=== PATIENT | male | born 1985 | race Caucasian/White ===

== ENCOUNTER 2017-08-09 03:08 | Emergency (ER) | payer MEDICAID ==
[~2017-08-09] VITALS: Ht 188 cm; Wt 113.4 kg
--- NOTE | 2017-08-09 03:11 | NUR ---
Patient to ER bed 8 to gown for evaluation. Side rails up.
[2017-08-09 03:15] VITALS: BP_SYST 121
--- NOTE | 2017-08-09 03:20 | NUR ---
Patient to ER C/O mid back pain 06/24 s/p working on his car Wednesday and "laying on back for many hours" Denies injury, pain is unrelieved by tylenol & excedrine. Denies tingling or radiating down the legs. AAOx4, unlabored breathig, no signs of acute distress.
--- NOTE | 2017-08-09 03:24 | NUR ---
ER MD Britany Heck at bedside evaluating the patient
[2017-08-09] MEDS ORDERED: KETOROLAC TROMETHAMINE 30 MG VIAL IM ONE (03:30)
--- NOTE | 2017-08-09 03:49 | NUR ---
Patient reports pain 4/10 15 minutes after administration of toradol. No adverse reactions noted. Will continue to monitor.
[2017-08-09 04:02] VITALS: BP_SYST 119
--- NOTE | 2017-08-09 04:02 | NUR ---
Patient given written and verbal discharge instructions and verbalizes understanding. ER MD Britany Parra discussed with patient the results and treatment provided. Patient in stable condition. ID arm band removed. Rx of flexeril &naproxen given. Patient educated on pain management and to follow up with PMD. Pain Scale 0/10. Opportunity for questions provided and answered.
== END 2017-08-09 04:02 | disposition home or self-care (01) ==
LOC: SED 03:08
DX: G89.29 Other chronic pain (principal); M54.6 Pain in thoracic spine
CPT/HCPCS: 96372; 99283; J1885

== ENCOUNTER 2017-08-11 20:40 | Emergency (ER) | payer MEDICAID ==
[~2017-08-11] VITALS: Ht 188 cm; Wt 113.4 kg
[2017-08-11 20:40] VITALS: BP_SYST 141
[2017-08-11 21:12] LABS: BILIRUBIN,URINE NEGATIVE (NEGATIVE); BLOOD, URINE NEGATIVE (NEGATIVE); CLARITY/URINE CLEAR (CLEAR); COLOR,URINE YELLOW (YELLOW); GLUCOSE,URINE NEGATIVE (NEGATIVE); KETONES,URINE NEGATIVE (NEGATIVE); LEUKOCYTE ESTERASE ,URINE NEGATIVE (NEGATIVE); NITRITE, URINE NEGATIVE (NEGATIVE); PROTEIN URINE NEGATIVE (NEGATIVE); UROBILINOGEN,URINE 0.2 (0.2-1.0)
[2017-08-11 21:43] LABS: BASOPHILS % (AUTO) 0.3 % (0.0-2.0); EOSINOPHILS # (AUTO) 0.2 K/uL (0.0-0.4); EOSINOPHILS % (AUTO) 2.5 % (0.0-4.0); HEMATOCRIT 44.9 % (36-54); HEMOGLOBIN 14.7 g/dL (14.0-18.0); LYMPHOCYTES # (AUTO) 1.1 K/uL (1.0-5.5); LYMPHOCYTES % (AUTO) 16.1 % (20.5-51.5); MEAN CORPUSCULAR HEMOGLOBIN 29 pg (27-31); MEAN CORPUSCULAR HGB CONC 33 % (32-36); MEAN CORPUSCULAR VOLUME 90 fL (79.0-98.0); MONOCYTES # (AUTO) 0.3 K/uL (0.0-1.0); MONOCYTES % (AUTO) 4.7 % (1.7-9.3); NEUTROPHILS # (AUTO) 5.3 K/uL (1.8-7.7); NEUTROPHILS % (AUTO) 76.4 % (40.0-70.0); PLATELET COUNT (AUTO) 191 K/uL (130-430); RED BLOOD CELL COUNT(AUTO) 5.02 MIL/uL (4.2-6.2); RED CELL DISTRIBUTION WIDTH 12.3 % (9.0-15.0); WHITE BLOOD COUNT (AUTO) 6.9 K/uL (4.8-10.8)
[2017-08-11 22:04] LABS: CALCIUM 9.1 mg/dL (8.4-11.0); CREATININE 0.93 mg/dL (0.55-1.30); POTASSIUM 3.7 mmol/L (3.5-5.1)
[2017-08-11 22:09] LABS: ALBUMIN 3.7 g/dL (3.4-4.8); TOTAL BILIRUBIN 0.3 mg/dL (0.0-1.0)
[2017-08-11 22:18] VITALS: BP_SYST 130
== END 2017-08-11 22:18 | disposition home or self-care (01) ==
LOC: SED 20:40
DX: K59.00 Constipation, unspecified (principal)
CPT/HCPCS: 36415; 80053; 81003; 83690-TC; 85025; 99285

== ENCOUNTER 2017-08-13 09:14 | Emergency (ER) | payer MEDICAID ==
[~2017-08-13] VITALS: Ht 188 cm; Wt 113.4 kg
[2017-08-13 09:22] VITALS: BP_SYST 121
[2017-08-13 11:00] VITALS: BP_SYST 120
== END 2017-08-13 11:01 | disposition home or self-care (01) ==
LOC: SED 09:14
DX: B02.9 Zoster without complications (principal); M54.6 Pain in thoracic spine; G89.29 Other chronic pain
CPT/HCPCS: 99283